=== PATIENT | male | born 1960 | race African-American/Black ===

== ENCOUNTER 2016-05-16 07:00 | Day surgery (SDC) | payer OTHER ==
[2016-05-16] VITALS (7 sets, daily range): BP systolic 106–135; BP diastolic 61–94; PULSE 70–84; RESP 16–20; TEMP 97.5–98.3; O2SAT 94–95
[~2016-05-16] VITALS: Ht 177.8 cm; Wt 127.0 kg
[~2016-05-16 07:00] MED LIST: ALBU0.086 INH; AMOX500T PO; BACT PO; CRES10TA OR; DARU400T2 OR; EPZITAB4 PO; FLUC200T63; LEVO75TA42 PO; MEDR4PAK3 PO; MMW SWISH-SWAL; NORV100C OR; ROBIACUDC PO; TRIL135C PO; VALT500T OR
[2016-05-16] MEDS ORDERED: LIDOCAINE 1%/EPINEPHrine 1:100,000 SOLN 20 ML VIAL ONE (07:39)
[2016-05-16] MEDS ORDERED: ROSU1TAB8 PO (08:06)
[2016-05-16] MEDS ORDERED: EMTR1TAB4 PO (08:06)
[2016-05-16] MEDS ORDERED: VITA100052 PO (08:06)
[2016-05-16] MEDS ORDERED: DARU800T PO (08:06)
[2016-05-16] MEDS ORDERED: TRAD5TAB PO (08:06)
[2016-05-16] MEDS ORDERED: METF1000 PO (08:06)
[2016-05-16] MEDS ORDERED: VALA1TAB PO (08:06)
[2016-05-16] MEDS ORDERED: CHOL1CAP PO (08:06)
[2016-05-16] MEDS ORDERED: RITO100 PO (08:06)
[2016-05-16] MEDS ORDERED: ASPI81CH37 CHEW (08:06)
[2016-05-16] MEDS ORDERED: INTE200T PO (08:06)
[2016-05-16] MEDS ORDERED: PLAQ200T PO (08:06)
[2016-05-16] MEDS ORDERED: MIDAZOLAM HCL 5 MG/5 ML VIAL ONE (08:16)
[2016-05-16] MEDS ORDERED: fentaNYL CITRATE 250 MCG/5 ML AMP ONE (08:16)
[2016-05-16] MEDS ORDERED: SODIUM BICARBONATE 8.4% INJ 50 ML ONE (08:20)
[2016-05-16] MEDS ORDERED: SODIUM CHLOR 0.9% 1000 ML IV SCH (09:00)
--- NOTE | 2016-05-16 09:28 | PD.RAD ---
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
--- NOTE | 2016-05-16 11:09 | RADRPT ---
EXAM DATE/TIME: 05/16/2016 08:22 [place] COMPARISON: No previous studies available for comparison. INDICATIONS : Left clavicular lesion. SEDATION TIME: 30 minutes BIOPSY SITE: Medial Left clavicle lytic mass MEDICATION(S): 1.) 2 mg midazolam (Versed) IV 2.) 100 mcg fentanyl (Sublimaze) IV DEVICE(S): 1.) 18 gauge Temno core biopsy needle MEDICAL HISTORY : HIV. Diabetes mellitus type 2. SURGICAL HISTORY : Appendectomy. ENCOUNTER: Initial ACUITY: 1 day PAIN SCORE: 0/10 LOCATION: Left chest A total of two core specimen(s) were obtained and sent to the laboratory for pathologic evaluation. PROCEDURE: 1. CT guided bone deep biopsy. 2. Conscious sedation with continuous EKG and oximetry monitoring. 3. EKG and oximetry remained stable throughout the procedure. Prior to the procedure informed consent was obtained. Any appropriate prior imaging studies were rev iewed. The site was prepped in a sterile fashion. Full sterile technique was used, including cap, mask, artemio rile gloves and gown and a large sterile sheet. Hand hygiene and 2% chlorhexidine and/or betadine/al cohol prep was utilized per protocol for cutaneous antisepsis. The skin and subcutaneous tissues wer e infiltrated with local anesthetic solution. With CT guidance the previously identified target was localized. Biopsy was performed using the presc ribed needle as above. Adequate hemostasis was obtained with compression at the puncture site. Follow-up CT scan reveals no hemorrhage. The patient tolerated the procedure well and there were no complications. The patient was returned to the Radiology Outpatient Unit in stable condition. CONCLUSION: Uncomplicated CT guided biopsy. Chris Sahu MD on May 16, 2016 at 11:06 Board Certified Radiologist. This report was verified electronically.
== END 2016-05-16 11:05 | disposition home or self-care (01) ==
LOC: EDSTATUS 07:00 → HRAD 07:00 → HRIP 07:02 → HRAD 11:05
PROVIDERS: ATTEND Radiology Radiation Oncology
DX: R93.7 Abnormal findings on diagnostic imaging of other parts of musculoskeletal system (principal); B20 Human immunodeficiency virus [HIV] disease; Z85.858 Personal history of malignant neoplasm of other endocrine glands
CPT/HCPCS: 20225; 77012; 88305; 99152; 99153; J2250; J3010; 88311